=== PATIENT | female | born 1975 | race American Indian/Alaskan Native ===

== ENCOUNTER 2019-04-09 12:52 | Emergency (ER) | payer MEDICARE ==
--- NOTE | 2019-04-09 13:13 | Emergency Department Report ---
Blank Doc - Documentation Documentation: This is a 43-year-old female that presents with URI symptoms. This initial assessment/diagnostic orders/clinical plan/treatment(s) is/are subject to change based on patient's health status, clinical progression and re- assessment by fellow clinical providers in the ED. Further treatment and workup at subsequent clinical providers discretion. Patient/guardians urged not to elope from the ED as their condition may be serious if not clinically assessed and managed. Initial orders include: 1- Patient sent to [facility] for further evaluation and treatment 2- cxr
--- NOTE | 2019-04-09 14:03 | XRay Report ---
ROUTINE CHEST, TWO VIEWS: HISTORY: Cough. The trachea, heart, mediastinal contour, lung devine and bony thorax are unremarkable. IMPRESSION: Unremarkable chest x-ray.
[2019-04-09] MEDS ORDERED: DELTASONE PO ONE (14:48)
[2019-04-09] MEDS ORDERED: DUONEB *Not for PRN Use IH ONE (14:48)
--- NOTE | 2019-04-09 14:51 | Emergency Department Report ---
Minor Respiratory - HPI Chief Complaint: Upper Respiratory Infection Stated Complaint: SOB/HEADACHE Time Seen by Provider: 04/09/19 13:12 Duration: 3 Days Pain Location: Chest Severity: mild Minor Respiratory: Yes Able to Tolerate Fluids, No Rhinorrhea, No Sore Throat, No Ear Pain, No Cough, No Sick Contacts, No Hemoptysis, No Chest Pain, No Shortness of Breath, No Fever Other History: 43 yo asthma pt with wheezing. no fever. no sputum. vss. afebrile. ambulatory in ER. ED Review of Systems ROS: Stated complaint: SOB/HEADACHE Other details as noted in HPI Comment: All other systems reviewed and negative ED Past Medical Hx - Past Medical History Previous Medical History?: Yes Hx Hypertension: Yes Hx Diabetes: Yes Hx Asthma: Yes - Surgical History Past Surgical History?: Yes Additional Surgical History: C section. Oopherectomy - Medications Home Medications: Home Medications Medication Instructions Recorded Confirmed Last Taken Type Cetirizine HCl [ZyrTEC] 10 mg PO DAILY #30 capsule 04/09/19 Unknown Rx predniSONE [Deltasone] 20 mg PO DAILY #5 tablet 04/09/19 Unknown Rx Minor Respiratory Exam - Exam General: Vital signs noted. No distress. Alert and acting appropriately. HEENT: Yes Moist Mucous Membranes, No Pharyngeal Erythema, No Pharyngeal Exudates, No Rhinorrhea, No Conjuctival Injection Ear: Neither TM Bulge, Neither TM Erythema, Neither EAC Pain, Neither EAC Discharge Neck: Yes Supple, No Adenopathy Lungs: Yes Good Air Exchange, Yes Wheezes Heart: Yes Regular, No Murmur Abdomen: Yes Normal Bowel Sounds, No Tenderness, No Peritoneal Signs Skin: No Rash, No Edema Neurologic: Alert and oriented, no deficits. Musculoskeletal: Unremarkable. ED Course - Reevaluation(s) Reevaluation #1: 04/09/19 14:49 home meds alb prn losartan nexium statin flonase ED Medical Decision Making - Radiology Data Radiology results: report reviewed, image reviewed - Medical Decision Making afebrile no sputum xray neg taking meds at home will add zyrtec/prednisone dc home with dc plan of care - Differential Diagnosis ro pna/asthma ae/bronchitis Critical care attestation.: If time is entered above; I have spent that time in minutes in the direct care of this critically ill patient, excluding procedure time. ED Disposition Clinical Impression: Asthma Disposition: DC-01 TO HOME OR SELFCARE Is pt being admited?: No Does the pt Need Aspirin: No Condition: Stable Instructions: Asthma (ED) Additional Instructions: DIET TOLERATED MEDS ORDERED TODAY IN ER FOLLOW INSTRUCTIONS ON THE BOTTLE FOLLOW UP PCP WITHIN 48 HOURS TO ENSURE YOU ARE GETTING BETTER ACTIVITY TOLERATED MOTRIN OR TYLENOL FOR PAIN OR FEVER RETURN TO THE ER FOR WORSENING SYMPTOMS NOT RELIEVED BY YOUR MEDICATIONS. Prescriptions: predniSONE [Deltasone] 20 mg PO DAILY #5 tablet Cetirizine HCl [ZyrTEC] 10 mg PO DAILY #30 capsule Forms: Work/School Release Form(ED) Time of Disposition: 14:50
== END 2019-04-09 15:45 | disposition home or self-care (01) ==
LOC: ED 12:52
DX: J45.909 Unspecified asthma, uncomplicated (principal); I10 Essential (primary) hypertension; E11.9 Type 2 diabetes mellitus without complications; Z90.721 Acquired absence of ovaries, unilateral; Z88.0 Allergy status to penicillin; Z88.8 Allergy status to other drugs, medicaments and biological substances
CPT/HCPCS: 71046; 94640; 99283; J7512

== ENCOUNTER 2020-09-28 00:06 | Emergency (ER) | payer MEDICARE ==
--- NOTE | 2020-09-28 02:37 | XRay Report ---
CHEST 2 VIEWS INDICATION: cough and chest pain. COMPARISON: 04/09/2019 FINDINGS: SUPPORT DEVICES: None. HEART: Within normal limits. LUNGS/PLEURA: No acute air space or interstitial disease. No pneumothorax. ADDITIONAL FINDINGS: None. IMPRESSION: 1. No acute findings. Signer Name: Tai Goetz MD Signed: 09/28/2020 2:33 AM Workstation Name: [id number]
[2020-09-28 06:09] VITALS: BP 136/80
--- NOTE | 2020-09-28 06:28 | Emergency Department Report ---
ED General Adult HPI - General Chief complaint: Upper Respiratory Infection Stated complaint: GENERAL SICKNESS Time Seen by Provider: 09/28/20 04:05 Source: patient Mode of arrival: Stretcher Limitations: No Limitations - History of Present Illness Initial comments: 44-year-old -[place] female patient presents with complaints of cough, congestion, and body aches x3 days. Patient states she has history of asthma and diabetes and reports that she has had mild chest tightness is relieved with her inhaler. She denies any hemoptysis, shortness of breath, abdominal pain, or sore throat. She does report mild chest pain that occurs with coughing only. She also denies any recent known sick contacts or loss of smell/taste. Patient reports one episode of diarrhea and one episode of vomiting today. She states she is tolerating foods and fluids Severity scale (0 -10): 0 - Related Data Previous Rx's Medication Instructions Recorded Last Taken Type predniSONE [Deltasone] 20 mg PO DAILY #5 tablet 04/09/19 Unknown Rx Cetirizine HCl [ZyrTEC 10mg cap] 10 mg PO DAILY #30 capsule 09/28/20 Unknown Rx Prednisone [predniSONE 5 mg (6-Day 5 mg PO .TAPER #1 tab.ds.pk 09/28/20 Unknown Rx Pack, 21 Tabs)] Allergies Allergy/AdvReac Type Severity Reaction Status Date / Time lisinopril Allergy Angioedema Verified 04/09/19 12:56 Penicillins Allergy Hives Verified 04/09/19 12:55 ED Review of Systems ROS: Stated complaint: GENERAL SICKNESS Other details as noted in HPI Constitutional: malaise. denies: chills, fever, weakness ENT: denies: throat pain Respiratory: cough. denies: shortness of breath Cardiovascular: as per HPI. denies: edema, syncope Gastrointestinal: as per HPI. denies: abdominal pain Skin: denies: rash, change in color Neurological: denies: headache ED Past Medical Hx - Past Medical History Previous Medical History?: Yes Hx Hypertension: Yes Hx Diabetes: Yes Hx Asthma: Yes - Surgical History Past Surgical History?: Yes Additional Surgical History: C section. Oopherectomy - Social History Smoking Status: Never Smoker Substance Use Type: None - Medications Home Medications: Home Medications Medication Instructions Recorded Confirmed Last Taken Type predniSONE [Deltasone] 20 mg PO DAILY #5 tablet 04/09/19 Unknown Rx Cetirizine HCl [ZyrTEC 10mg cap] 10 mg PO DAILY #30 capsule 09/28/20 Unknown Rx Prednisone [predniSONE 5 mg (6-Day 5 mg PO .TAPER #1 tab.ds.pk 09/28/20 Unknown Rx Pack, 21 Tabs)] ED Physical Exam - General Limitations: No Limitations General appearance: alert, in no apparent distress, obese - Head Head exam: Present: atraumatic, normocephalic - Eye Eye exam: Present: normal appearance - ENT ENT exam: Present: normal orophraynx, mucous membranes moist - Neck Neck exam: Present: normal inspection. Absent: lymphadenopathy - Respiratory Respiratory exam: Present: normal lung sounds bilaterally. Absent: respiratory distress - Cardiovascular Cardiovascular Exam: Present: regular rate, normal rhythm. Absent: systolic murmur, diastolic murmur, rubs, gallop - GI/Abdominal GI/Abdominal exam: Present: soft. Absent: distended, tenderness, guarding, rebound, rigid - Neurological Exam Neurological exam: Present: alert, oriented X3 - Psychiatric Psychiatric exam: Present: normal affect, normal mood - Skin Skin exam: Present: warm, dry, intact, normal color. Absent: rash, cyanosis, pallor ED Course Vital Signs 09/28/20 09/28/20 01:38 06:07 Temperature 99.3 F 98.2 F Pulse Rate 91 H 74 Respiratory 18 18 Rate Blood Pressure 150/101 Blood Pressure 136/80 [Left] O2 Sat by Pulse 97 98 Oximetry ED Medical Decision Making - Radiology Data Radiology results: report reviewed CHEST 2 VIEWS INDICATION: cough and chest pain. COMPARISON: 04/09/2019 FINDINGS: SUPPORT DEVICES: None. HEART: Within normal limits. LUNGS/PLEURA: No acute air space or interstitial disease. No pneumothorax. ADDITIONAL FINDINGS: None. IMPRESSION: 1. No acute findings. - Medical Decision Making 44-year-old -[place] female patient presents with complaints of cough, congestion, and body aches x3 days. Patient states she has history of asthma and diabetes and reports that she has had mild chest tightness is relieved with her inhaler. She denies any hemoptysis, shortness of breath, abdominal pain, or sore throat. She does report mild chest pain that occurs with coughing only. She also denies any recent known sick contacts or loss of smell/taste. Patient reports one episode of diarrhea and one episode of vomiting today. She states she is tolerating foods and fluids Physical exam is without acute findings. Chest x-ray is normal. Normal sinus rhythm noted on EKG. Patient is well-appearing and stable for discharge home. Will treat for viral URI. Patient to follow-up with primary care provider in 3 days. Also recommend patient receive Covid testing outpatient, testing facility list provided to patient. Strict return precautions were discussed in detail with patient who verbalizes understanding. Critical care attestation.: If time is entered above; I have spent that time in minutes in the direct care of this critically ill patient, excluding procedure time. ED Disposition Clinical Impression: URI with cough and congestion Disposition: DC-01 TO HOME OR SELFCARE Is pt being admited?: No Condition: Stable Instructions: Upper Respiratory Infection, Adult Prescriptions: Prednisone [predniSONE 5 mg (6-Day Pack, 21 Tabs)] 5 mg PO .TAPER #1 tab.ds.pk Cetirizine HCl [ZyrTEC 10mg cap] 10 mg PO DAILY #30 capsule Referrals: FILIPE TORRES MD [Primary Care Provider] - 3-5 Days Forms: Work/School Release Form(ED)
== END 2020-09-28 06:32 | disposition home or self-care (01) ==
LOC: ED 00:06
DX: J06.9 Acute upper respiratory infection, unspecified (principal); R05 Cough; R09.89 Other specified symptoms and signs involving the circulatory and respiratory systems; I10 Essential (primary) hypertension; E11.9 Type 2 diabetes mellitus without complications; J45.909 Unspecified asthma, uncomplicated; Z98.890 Other specified postprocedural states; Z79.899 Other long term (current) drug therapy; Z88.0 Allergy status to penicillin; Z88.8 Allergy status to other drugs, medicaments and biological substances
CPT/HCPCS: 71046; 82962; 93005

== ENCOUNTER 2020-12-14 10:33 | Emergency (ER) | payer MEDICARE ==
[2020-12-14 10:41] VITALS: BP 150/99
--- NOTE | 2020-12-14 10:57 | Emergency Department Report ---
ED Dizziness HPI - General Chief Complaint: Dizziness Stated Complaint: DIZZY Source: patient Mode of arrival: Ambulatory Limitations: No Limitations - History of Present Illness Initial Comments: 44 y/o female comes in for 3 day history of feeling like the room is spining. Patient admits that she has had several near falls. Has a GRAVES and dizziness is worst with bending down. Headache not responding to Ibuprofen. Admits to nausea no vomiting. Denies any trauma. PMH DM HTN. MD Complaint: dizziness Timing: sudden onset Description: "room spinning" History of Same: No History of Trauma: No Severity: moderate Improves With: nothing Worsens With: movement, position Associated Symptoms: other (nausea) - Related Data Previous Rx's Medication Instructions Recorded Last Taken Type predniSONE [Deltasone] 20 mg PO DAILY #5 tablet 04/09/19 Unknown Rx Cetirizine HCl [ZyrTEC 10mg cap] 10 mg PO DAILY #30 capsule 09/28/20 Unknown Rx Prednisone [predniSONE 5 mg (6-Day 5 mg PO .TAPER #1 tab.ds.pk 09/28/20 Unknown Rx Pack, 21 Tabs)] Meclizine [Antivert] 25 mg PO TID PRN #15 tablet 12/14/20 Unknown Rx Allergies Allergy/AdvReac Type Severity Reaction Status Date / Time lisinopril Allergy Angioedema Verified 04/09/19 12:56 Penicillins Allergy Hives Verified 04/09/19 12:55 ED Review of Systems ROS: Stated complaint: DIZZY Other details as noted in HPI ED Past Medical Hx - Past Medical History Previous Medical History?: Yes Hx Hypertension: Yes Hx Diabetes: Yes Hx Asthma: Yes - Surgical History Past Surgical History?: Yes Additional Surgical History: C section. Oopherectomy - Social History Smoking Status: Never Smoker Substance Use Type: None - Medications Home Medications: Home Medications Medication Instructions Recorded Confirmed Last Taken Type predniSONE [Deltasone] 20 mg PO DAILY #5 tablet 04/09/19 Unknown Rx Cetirizine HCl [ZyrTEC 10mg cap] 10 mg PO DAILY #30 capsule 09/28/20 Unknown Rx Prednisone [predniSONE 5 mg (6-Day 5 mg PO .TAPER #1 tab.ds.pk 09/28/20 Unknown Rx Pack, 21 Tabs)] Meclizine [Antivert] 25 mg PO TID PRN #15 tablet 12/14/20 Unknown Rx ED Physical Exam - General Limitations: No Limitations General appearance: alert, in no apparent distress - Head Head exam: Present: atraumatic, normocephalic - Eye Eye exam: Present: normal appearance - ENT ENT exam: Present: mucous membranes moist - Neck Neck exam: Present: normal inspection, full ROM - Respiratory Respiratory exam: Present: normal lung sounds bilaterally. Absent: accessory m uscle use - Cardiovascular Cardiovascular Exam: Present: regular rate - Neurological Exam Neurological exam: Present: alert, oriented X3, abnormal gait - Expanded Neurological Exam Expanded Patient oriented to: Present: person, place, time Cranial nerves: EOM's Intact: Normal, Gag Reflex: Normal, Tongue Deviation: Normal, Nystagmus: Normal, Facial Sensation: Normal, Facial Palsy with Forehead Movement: Normal, Facial Palsy without Forehead Movement: Normal Cerebellar function: Finger to Nose: Normal, Heel to Varela: Normal, Romberg: Normal Upper motor neuron: Matteo Neglect: Normal, Pronator Drift: Normal, Babinski Sign: Normal, Sensory Extinction: Normal Sensory exam: Upper Extremity Light Touch: Normal, Upper Extremity Pin Prick: Normal, Upper Extremity Temperature: Normal, UE 2 Point Discrimination: Normal, Lower Extremity Light Touch: Normal, Lower Extremity Pin Prick: Normal, Lower Extremity Temperature: Normal, LE 2 Point Discrimination: Normal Motor strength exam: RUE: 5, LUE: 5, RLE: 5, LLE: 5 Best Eye Response ([place]): (4) open spontaneously Best Motor Response ([place]): (6) obeys commands Best Verbal Response ([place]): (5) oriented [place] Total: 15 - Psychiatric Psychiatric exam: Present: normal affect, normal mood - Skin Skin exam: Present: warm, dry, intact, normal color. Absent: rash ED Course Vital Signs 12/14/20 10:36 Temperature 98.2 F Pulse Rate 78 Respiratory 20 Rate Blood Pressure 150/99 O2 Sat by Pulse 97 Oximetry ED Medical Decision Making - Lab Data Result diagrams: 12/14/20 11:18 - Radiology Data Radiology results: report reviewed Patient: ALIA MUNIZ MR#: [id number] 91 : 1975 Acct:[id number] Age/Sex: 44 / F ADM Date: 12/14/20 Loc: ED Attending Dr: Ordering Physician: CATINA BOTELLO Date of Service: 12/14/20 Procedure(s): CT head/brain wo con Accession Number(s): [id number] cc: CATINA BOTELLO CT head/brain wo con INDICATION / CLINICAL INFORMATION: 44 years Female; dizziness unsteady gait.. TECHNIQUE: Routine CT head without contrast. All CT scans at this location are performed using CT dose reduction for ALARA by means of automated exposure control. COMPARISON: None. FINDINGS: BRAIN / INTRACRANIAL CONTENTS: No acute hemorrhage, mass effect, midline shift, hydrocephalus, or acute, large territorial infarct. No signs of significant atrophy or chronic infarct. No significant white matter abnormality seen. Presumed ossification of the dura is seen along the inner table of the anterior parietal region on the left, superiorly. CRANIOCERVICAL JUNCTION: No significant abnormality. ORBITS: No significant abnormality of visualized orbits. SINUSES / MASTOIDS: Mucous retention cyst/polyp seen in the left sphenoid sinus. ADDITIONAL FINDINGS: Prominent soft tissue is seen in the roof the nasopharynx, presumably related to reactive adenoidal tissue. Please clinically correlate. IMPRESSION: 1. No focal intra-axial mass, hemorrhage, hydrocephalus, or acute, large territorial infarct. Signer Name: Alfred Earl MD, III Signed: 12/14/2020 11:39 AM Workstation Name: [email or web address] Transcribed By: Dictated By: Alfred Earl MD Electronically Authenticated By: Alfred Earl MD Signed Date/Time: 12/14/20 1139 DD/ 1136 TD/TT: - Medical Decision Making 44 y/o female comes in for 3 day history of feeling like the room is spining. Patient admits that she has had several near falls. Has a GRAVES and dizziness is worst with bending down. Headache not responding to Ibuprofen. Admits to nausea no vomiting. Denies any trauma. PMH DM HTN. Critical care attestation.: If time is entered above; I have spent that time in minutes in the direct care of this critically ill patient, excluding procedure time. ED Disposition Clinical Impression: Benign paroxysmal vertigo Disposition: DC-01 TO HOME OR SELFCARE Is pt being admited?: No Does the pt Need Aspirin: No Condition: Stable Instructions: Vertigo, [id number], How to Perform the Angelica Maneuver Additional Instructions: CT scan of head is negative for any masses, no bleeds. Take medication as prescribed try maneuvers for vertigo. Follow up with your Primary Care Provider. Prescriptions: Meclizine [Antivert] 25 mg PO TID PRN #15 tablet PRN Reason: Vertigo Forms: Work/School Release Form(ED)
--- NOTE | 2020-12-14 11:43 | Cat Scan Report ---
CT head/brain wo con INDICATION / CLINICAL INFORMATION: 44 years Female; dizziness unsteady gait.. TECHNIQUE: Routine CT head without contrast. All CT scans at this location are performed using CT dos e reduction for ALARA by means of automated exposure control. COMPARISON: None. FINDINGS: BRAIN / INTRACRANIAL CONTENTS: No acute hemorrhage, mass effect, midline shift, hydrocephalus, or acu te, large territorial infarct. No signs of significant atrophy or chronic infarct. No significant whi te matter abnormality seen. Presumed ossification of the dura is seen along the inner table of the anterior parietal region on th e left, superiorly. CRANIOCERVICAL JUNCTION: No significant abnormality. ORBITS: No significant abnormality of visualized orbits. SINUSES / MASTOIDS: Mucous retention cyst/polyp seen in the left sphenoid sinus. ADDITIONAL FINDINGS: Prominent soft tissue is seen in the roof the nasopharynx, presumably related to reactive adenoidal tissue. Please clinically correlate. IMPRESSION: 1. No focal intra-axial mass, hemorrhage, hydrocephalus, or acute, large territorial infarct. Signer Name: Alfred Earl MD, III Signed: 12/14/2020 11:39 AM Workstation Name: [id number]
[2020-12-14 11:53] LABS: Basophils % (Auto) 0.6 % (0.0-1.8); Eosinophils # (Auto) 0.1 K/mm3 (0.0-0.4); Eosinophils % (Auto) 1.6 % (0.0-4.3); Hematocrit 34.2 % (30.3-42.9); Hemoglobin 10.6 gm/dl (10.1-14.3); Lymphocytes # (Auto) 2.4 K/mm3 (1.2-5.4); Lymphocytes % (Auto) 42.6 % (13.4-35.0); Mean Corpuscular HGB Conc 31 % (30-34); Mean Corpuscular Volume 77 fl (79-97); Monocytes # (Auto) 0.4 K/mm3 (0.0-0.8); Monocytes % (Auto) 7.8 % (0.0-7.3); Platelet Count 220 K/mm3 (140-440); Red Blood Count 4.45 M/mm3 (3.65-5.03); Red Cell Distribution Width 18.5 % (13.2-15.2)
[2020-12-14 12:21] LABS: Alanine Aminotransferase 7 units/L (7-56); Albumin 3.6 g/dL (3.9-5); Blood Urea Nitrogen 7 mg/dL (7-17); Calcium 8.5 mg/dL (8.4-10.2); Hemolysis Index 2
[2020-12-14 12:40] LABS: BUN/Creatinine Ratio 14
== END 2020-12-14 12:44 | disposition home or self-care (01) ==
LOC: ED 10:33
DX: H81.10 Benign paroxysmal vertigo, unspecified ear (principal); I10 Essential (primary) hypertension; E11.9 Type 2 diabetes mellitus without complications; J45.909 Unspecified asthma, uncomplicated; Z79.899 Other long term (current) drug therapy; Z88.0 Allergy status to penicillin; Z88.8 Allergy status to other drugs, medicaments and biological substances
CPT/HCPCS: 36415; 70450; 80053; 82962; 85025

== ENCOUNTER 2021-05-02 11:52 | Emergency (ER) | payer MEDICARE ==
--- NOTE | 2021-05-02 13:09 | Emergency Department Report ---
ED Back Pain/Injury [facility] - General Chief Complaint: Back Pain/Injury Stated Complaint: BACK PAIN Time Seen by Provider: 05/02/21 12:44 Source: patient Limitations: No Limitations - History of Present Illness Initial Comments: 45-year-old morbid obese -[place] female with a history of chronic back pain presents to the emergency room complaining of back pain. Patient is c urrently under pain management with Dr. Anand Guardado. Patient last filled her hydrocodone 10 mg over 325 on 04/21/2021. Patient denies any recent injuries. She states she had a fall a couple months ago but has seen her pain management provider breezy since then. Patient denies any urinary or bowel incontinent. Patient states that she works at the [employer] and lifting close. MD Complaint: back pain - Related Data Previous Rx's Medication Instructions Recorded Last Taken Type predniSONE [Deltasone] 20 mg PO DAILY #5 tablet 04/09/19 Unknown Rx Cetirizine HCl [ZyrTEC 10mg cap] 10 mg PO DAILY #30 capsule 09/28/20 Unknown Rx Prednisone [predniSONE 5 mg (6-Day 5 mg PO .TAPER #1 tab.ds.pk 09/28/20 Unknown Rx Pack, 21 Tabs)] Meclizine [Antivert] 25 mg PO TID PRN #15 tablet 12/14/20 Unknown Rx Allergies Allergy/AdvReac Type Severity Reaction Status Date / Time lisinopril Allergy Angioedema Verified 04/09/19 12:56 Penicillins Allergy Hives Verified 04/09/19 12:55 ED Review of Systems ROS: Stated complaint: BACK PAIN Other details as noted in HPI ED Past Medical Hx - Past Medical History Previous Medical History?: Yes Hx Hypertension: Yes Hx Diabetes: Yes Hx Asthma: Yes Additional medical history: Back pain - Surgical History Past Surgical History?: Yes Additional Surgical History: C section. Oopherectomy - Social History Smoking Status: Never Smoker Substance Use Type: None - Medications Home Medications: Home Medications Medication Instructions Recorded Confirmed Last Taken Type predniSONE [Deltasone] 20 mg PO DAILY #5 tablet 04/09/19 Unknown Rx Cetirizine HCl [ZyrTEC 10mg cap] 10 mg PO DAILY #30 capsule 09/28/20 Unknown Rx Prednisone [predniSONE 5 mg (6-Day 5 mg PO .TAPER #1 tab.ds.pk 09/28/20 Unknown Rx Pack, 21 Tabs)] Meclizine [Antivert] 25 mg PO TID PRN #15 tablet 12/14/20 Unknown Rx ED Physical Exam - General Limitations: No Limitations ED Course Vital Signs 05/02/21 12:07 Temperature 98.0 F Pulse Rate 81 Respiratory 16 Rate Blood Pressure 130/80 O2 Sat by Pulse 97 Oximetry ED Medical Decision Making - Medical Decision Making 45-year-old morbid obese -[place] female with a history of chronic back pain presents to the emergency room complaining of back pain. Patient is currently under pain management with Dr. Anand Guardado. Patient last filled her hydrocodone 10 mg over 325 on 04/21/2021. Patient denies any recent injuries. She states she had a fall a couple months ago but has seen her pain management provider divider since then. Patient denies any urinary or bowel incontinent. Patient states that she works at the [employer] and lifting close. Critical care attestation.: If time is entered above; I have spent that time in minutes in the direct care of this critically ill patient, excluding procedure time. ED Disposition Clinical Impression: Chronic back pain greater than 3 months duration Disposition: DC-01 TO HOME OR SELFCARE Is pt being admited?: No Does the pt Need Aspirin: No Condition: Stable Instructions: Chronic Back Pain, L[place]-[id number] Additional Instructions: Please continue your pain medication from your pain management doctor. You can try Tylenol or ibuprofen. You can do sciatica stretches. Follow-up with your primary care provider. Referrals: JACKSON MOSES MD [Staff Physician] - 3-5 Days Forms: Work/School Release Form(ED)
== END 2021-05-02 13:00 | disposition home or self-care (01) ==
LOC: ED 11:52
CPT/HCPCS: 99281

== ENCOUNTER 2022-04-29 08:39 | Emergency (ER) | payer MEDICARE ==
[2022-04-29] MEDS ORDERED: KETOROLAC 30 MG/1 ML INJ IM ONE (12:47)
--- NOTE | 2022-04-29 13:15 | XRay Report ---
XR tibia fibula 2V LT INDICATION / CLINICAL INFORMATION: left leg pain. COMPARISON: None available. FINDINGS: BONES/JOINT(S): No acute fracture or subluxation. 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 No focal bone erosions or foc al osteopenia to suggest inflammatory arthropathy. SOFT TISSUES: No significant abnormality. ADDITIONAL FINDINGS: None. Signer Name: Bunny Kingsley MD Signed: 04/29/2022 1:11 PM Workstation Name: [id number]
--- NOTE | 2022-04-29 13:38 | Emergency Department Report ---
ED Lower Extremity HPI - General Chief Complaint: Extremity Injury, Lower Stated Complaint: LEFT ELG INJURY/WORK RELATED Source: patient Mode of arrival: Ambulatory Limitations: No Limitations - History of Present Illness Initial Comments: 46-year-old female presents to the ED complaining left hip pain. States that she was at work today when she got hit by a tamara truck to her lower extremity. States that pain is current 5 out of 8. Patient is ambulatory. No obvious deformity noted. No Distracting injury noted. No edema noted. Patient denies any numbness and tingling. Patient is alert and oriented x3. No acute distress noted. No ill appearance noted. MD Complaint: leg injury Onset/Timin Injury: Leg: Left Place: home Improves With: nothing Worsens With: nothing - Related Data Previous Rx's Medication Instructions Recorded Last Taken Type predniSONE [Deltasone] 20 mg PO DAILY #5 tablet 04/09/19 Unknown Rx Cetirizine HCl [ZyrTEC 10mg cap] 10 mg PO DAILY #30 capsule 09/28/20 Unknown Rx Prednisone [predniSONE 5 mg (6-Day 5 mg PO .TAPER #1 tab.ds.pk 09/28/20 Unknown Rx Pack, 21 Tabs)] Meclizine [Antivert] 25 mg PO TID PRN #15 tablet 12/14/20 Unknown Rx Naproxen [Naprosyn] 500 mg PO BID 15 Days #30 tablet 04/29/22 Unknown Rx Allergies Allergy/AdvReac Type Severity Reaction Status Date / Time lisinopril Allergy Angioedema Verified 04/09/19 12:56 Penicillins Allergy Hives Verified 04/09/19 12:55 ED Review of Systems ROS: Stated complaint: LEFT ELG INJURY/WORK RELATED Other details as noted in HPI Constitutional: denies: chills, fever Eyes: denies: eye pain, eye discharge, vision change ENT: denies: ear pain, throat pain Respiratory: denies: cough, shortness of breath, wheezing Cardiovascular: denies: chest pain, palpitations Endocrine: no symptoms reported Gastrointestinal: denies: abdominal pain, nausea, diarrhea Genitourinary: denies: urgency, dysuria, discharge Musculoskeletal: denies: back pain, joint swelling, arthralgia Skin: denies: rash, lesions Neurological: denies: headache, weakness, paresthesias Psychiatric: denies: anxiety, depression Hematological/Lymphatic: denies: easy bleeding, easy bruising ED Past Medical Hx - Past Medical History Hx Hypertension: Yes Hx Diabetes: Yes Hx Asthma: Yes Additional medical history: Back pain - Surgical History Additional Surgical History: C section. Oopherectomy - Social History Smoking Status: Never Smoker Substance Use Type: None - Medications Home Medications: Home Medications Medication Instructions Recorded Confirmed Last Taken Type predniSONE [Deltasone] 20 mg PO DAILY #5 tablet 04/09/19 Unknown Rx Cetirizine HCl [ZyrTEC 10mg cap] 10 mg PO DAILY #30 capsule 09/28/20 Unknown Rx Prednisone [predniSONE 5 mg (6-Day 5 mg PO .TAPER #1 tab.ds.pk 09/28/20 Unknown Rx Pack, 21 Tabs)] Meclizine [Antivert] 25 mg PO TID PRN #15 tablet 12/14/20 Unknown Rx Naproxen [Naprosyn] 500 mg PO BID 15 Days #30 tablet 04/29/22 Unknown Rx ED Physical Exam - General Limitations: No Limitations General appearance: alert, in no apparent distress - Head Head exam: Present: atraumatic, normocephalic - Eye Eye exam: Present: normal appearance - ENT ENT exam: Present: mucous membranes moist - Neck Neck exam: Present: normal inspection - Respiratory Respiratory exam: Present: normal lung sounds bilaterally. Absent: respiratory distress - Cardiovascular Cardiovascular Exam: Present: regular rate, normal rhythm. Absent: systolic murmur, diastolic murmur, rubs, gallop - GI/Abdominal GI/Abdominal exam: Present: soft, normal bowel sounds - Extremities Exam Extremities exam: Present: normal inspection - Back Exam Back exam: Present: normal inspection - Neurological Exam Neurological exam: Present: alert, oriented X3 - Psychiatric Psychiatric exam: Present: normal affect, normal mood - Skin Skin exam: Present: warm, dry, intact, normal color. Absent: rash ED Course Vital Signs 04/29/22 08:48 Temperature 98.5 F Pulse Rate 61 Respiratory 16 Rate Blood Pressure 177/106 [Left] O2 Sat by Pulse 97 Oximetry ED Lower Extremity MDM - Medical Decision Making [facility] [address] [place] [address] XRay Report Signed Patient: ALIA MUNIZ MR#: [id number] 91 : 1975 Acct:[id number] Age/Sex: 46 / F ADM Date: 04/29/22 Loc: ED Attending Dr: Ordering Physician: BETO TORRES Date of Service: 04/29/22 Procedure(s): XR tibia fibula 2V LT Accession Number(s): [id number] cc: BETO TORRES Fluoro Time In Minutes: XR tibia fibula 2V LT INDICATION / CLINICAL INFORMATION: left leg pain. COMPARISON: None available. FINDINGS: BONES/JOINT(S): No acute fracture or subluxation. 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 No focal bone erosions or focal osteopenia to suggest inflammatory arthropathy. SOFT TISSUES: No significant abnormality. ADDITIONAL FINDINGS: None. Critical care attestation.: If time is entered above; I have spent that time in minutes in the direct care of this critically ill patient, excluding procedure time. ED Disposition Clinical Impression: Left leg pain Disposition: 01 HOME / SELF CARE / HOMELESS Is pt being admited?: No Does the pt Need Aspirin: No Condition: Stable Instructions: How to Use Cold Therapy, Musculoskeletal Pain Additional Instructions: Take medication as prescribed Follow-up with Workmen's Comp. doctor within your network Prescriptions: Naproxen [Naprosyn] 500 mg PO BID 15 Days #30 tablet Referrals: [facility] [Provider Group] - 3-5 Days Forms: Work/School Release Form(ED) Time of Disposition: 13:41
[2022-04-29 14:13] VITALS: BP 168/90
== END 2022-04-29 14:10 | disposition home or self-care (01) ==
LOC: ED 08:39
DX: M79.605 Pain in left leg (principal); Z88.0 Allergy status to penicillin; Z88.8 Allergy status to other drugs, medicaments and biological substances; I10 Essential (primary) hypertension; E11.9 Type 2 diabetes mellitus without complications; J45.909 Unspecified asthma, uncomplicated
CPT/HCPCS: 73590; 96372; 99283; J1885